=== PATIENT | male | born 1975 ===

== ENCOUNTER 2016-10-22 11:58 | Emergency (ER) | payer MEDICARE, MEDICAID ==
--- NOTE | 2016-10-22 12:36 | UC ---
Skin Complaint HPI - HPI Summary HPI Summary: ONSET OF ITCHY RED, VESICULAR RASH ON BILATERAL FOREARMS 4 DAYS AGO AFTER WEED WHACKING AT HIS MOTHER'S HOUSE. THINKS HE MUST HAVE GOTTEN INTO POISON DESTINEY. HAS HAD IT BEFORE AND RESPONDS WELL TO PREDNISONE. - History of Current Complaint Chief Complaint: UCSkin Time Seen by Provider: 10/22/16 12:33 Stated Complaint: RASH Hx Obtained From: Patient Onset/Duration: Gradual Onset, Lasting Days, Still Present Skin Exposure Onset/Duration: Days Ago Timing: Constant Onset Severity: Moderate Current Severity: Moderate Pain Intensity: 0 Pain Scale Used: 0-10 Numeric Location: Discrete - BILATERAL UPPER EXTREMITIES Character: Pruritus Aggravating: Touch Alleviating: Nothing Associated Signs & Symptoms: Positive: Rash Related History: Possible Reaction to: Environmental Exposure - Allergy/Home Medications Allergies/Adverse Reactions: Allergies Allergy/AdvReac Type Severity Reaction Status Date / Time Penicillins Allergy Hives Verified 10/22/16 12:07 Review of Systems Constitutional: Negative Skin: Rash Respiratory: Negative Cardiovascular: Negative Gastrointestinal: Negative All Other Systems Reviewed And Are Negative: Yes PMH/Surg Hx/FS Hx/Imm Hx Previously Healthy: Yes - Surgical History Surgical History: None - Family History Known Family History: Negative: Hypertension - Social History Alcohol Use: None Substance Use Type: None Smoking Status (MU): Former Smoker Physical Exam Triage Information Reviewed: Yes Appearance: Well-Appearing, No Pain Distress, Well-Nourished Vital Signs: Initial Vital Signs Temp 99.1 F 10/22/16 12:02 Pulse 108 10/22/16 12:02 Resp 18 10/22/16 12:02 BP 250/184 10/22/16 12:02 Pulse Ox 100 10/22/16 12:02 Vital Signs Reviewed: Yes Eyes: Positive: Conjunctiva Clear ENT: Positive: Hearing grossly normal Neck: Positive: Supple Respiratory: Positive: No respiratory distress, No accessory muscle use Cardiovascular: Positive: Pulses Normal Abdomen Description: Positive: Soft Musculoskeletal: Positive: No Edema Neurological: Positive: Alert Psychological: Positive: Normal Response To Family, Age Appropriate Behavior Skin: Positive: rashes - BILATERAL UPPER EXTREMITIES WITH SCATTERED RED, VESICULAR RASH Course/Dx - Diagnoses Provider Diagnoses: CONTACT DERMATITIS Discharge - Discharge Plan Condition: Stable Disposition: HOME Prescriptions: predniSONE TAB* [Deltasone TAB*] 50 mg PO DAILY #7 tab Patient Education Materials: Contact Dermatitis (ED), Hypertension (ED) Referrals: Osmar Gramajo MD [Primary Care Provider] - 1 Week (YOUR BLOOD PRESSUR EIS DANGEROUSLY HIGH HERE. PLEASE MONITOR AT HOME AND FOLLOW-UP WITH YOUR PCP WITHIN THE WEEK.) Additional Instructions: TAKE PREDNISONE DAILY FOR 7 DAYS USE DAILY MOISTURIZING LOTION AVOID HOT WATER TAKE OTC ANTIHISTAMINE DAILY (CLARITIN (LORATADINE), ZYRTEC (CETIRIZINE) OR EUN (FEXOFENADINE) IN THE MORNING, BENADRYL AT NIGHT) DO NOT SCRATCH KEEP COOL, CLEAN AND DRY YOUR BLOOD PRESSURE IS DANGEROUSLY HIGH HERE (250/184). PLEASE MONITOR AT HOME AND FOLLOW-UP WITH YOUR PCP WITHIN THE WEEK. GO TO ER WITHOUT FAIL IF YOU DEVELOP CHEST PAIN, SHORTNESS OF BREATH, HEADACHE, NAUSEA, SWEATS, DIZZINESS OR ANY OTHER CONCERNING SYMPTOMS.
== END 2016-10-22 12:55 | disposition home or self-care (01) ==
LOC: UCEAST 11:58
DX: L25.9 Unspecified contact dermatitis, unspecified cause (principal); Z87.891 Personal history of nicotine dependence
CPT/HCPCS: 99202; G0463